=== PATIENT | male | born 1960 | race Caucasian/White ===

== ENCOUNTER 2016-11-17 19:07 | Emergency (ER) | payer BC, OTHER ==
[2016-11-17] MEDS ORDERED: Tetracaine HCl/PF 0.5% 4 ML Bottle EYERT ONE (19:17)
[2016-11-17] MEDS ORDERED: Polyvinyl Alcohol 1.4% Ophth Soln 15 ML Bottle EYEBOTH ONE (19:18)
[2016-11-17 19:19] VITALS: BP 142/78
[2016-11-17] MEDS ORDERED: Gentamicin 0.3% Ophth Soln 5 ML Bottle EYELF SCH (19:30)
--- NOTE | 2016-11-17 19:40 | EDM.PDOC ---
ED HPI GENERAL MEDICAL PROBLEM - General Chief Complaint: Eye Problems Stated Complaint: Something in L eye Time Seen by Provider: 11/17/16 19:15 Source of Information: Reports: Patient History Limitations: Reports: No Limitations - History of Present Illness INITIAL COMMENTS - FREE TEXT/NARRATIVE: Patient is a 56-year-old gentleman who was seen in the emergency room with chief complaint of left eye pain he thinks he has a foreign body in the eye pain started around 3 AM patient went to sleep and when he woke up in the morning he had increased pain he denies knowing anything that could cause his eye irritation Onset: Today, Sudden Duration: Hour(s):, Getting Worse Location: Reports: Face (Left eye) Quality: Reports: Ache, Stabbing Severity: Severe Improves with: Reports: None Worsens with: Reports: Other (Attempts at removal with) Context: Reports: Trauma Associated Symptoms: Reports: No Other Symptoms Treatments [employer]: Reports: Acetaminophen - Related Data Allergies Allergy/AdvReac Type Severity Reaction Status Date / Time No Known Allergies Allergy Verified 11/17/16 19:09 ED ROS GENERAL - Review of Systems Review Of Systems: See Below Constitutional: Reports: No Symptoms HEENT: Reports: No Symptoms Respiratory: Reports: No Symptoms Cardiovascular: Reports: No Symptoms Endocrine: Reports: No Symptoms GI/Abdominal: Reports: No Symptoms : Reports: No Symptoms Musculoskeletal: Reports: No Symptoms Skin: Reports: No Symptoms Neurological: Reports: No Symptoms Psychiatric: Reports: No Symptoms ED EXAM GENERAL W FULL EYE - Physical Exam Exam: See Below Exam Limited By: No Limitations General Appearance: Alert, WD/WN, No Apparent Distress Eye Exam: Left Eye: Corneal Abrasion (Small ulceration 6:00) Cornea Exam: Left: Corneal Ulcer Pupils: Normal Accommodation Pupillary Size: Left: 3 mm Pupillary Reaction: Bilateral: Brisk Anterior Chamber: Bilateral: Normal Appearance Posterior Chamber: Bilateral: Normal Funduscopic Ears: Normal External Exam, Normal Canal, Hearing Grossly Normal, Normal TMs Nose: Normal Inspection, Normal Mucosa, No Blood Throat/Mouth: Normal Inspection, Normal Lips, Normal Teeth, Normal Gums, Normal Oropharynx, Normal Voice, No Airway Compromise Head: Atraumatic, Normocephalic Neck: Normal Inspection, Supple, Non-Tender, Full Range of Motion Respiratory/Chest: No Respiratory Distress, Lungs Clear, Normal Breath Sounds, No Accessory Muscle Use, Chest Non-Tender Cardiovascular: Normal Peripheral Pulses, Regular Rate, Rhythm, No Edema, No Gallop, No JVD, No Murmur, No Rub GI/Abdominal: Normal Bowel Sounds, Soft, Non-Tender, No Organomegaly, No Distention, No Abnormal Bruit, No Mass (Male) Exam: Deferred Rectal (Males) Exam: Deferred Back Exam: Normal Inspection, Full Range of Motion, NT Extremities: Normal Inspection, Normal Range of Motion, Non-Tender, Normal Capillary Refill, No Pedal Edema Neurological: Alert, Oriented, CN II-XII Intact, Normal Cognition, Normal Gait, Normal Reflexes, No Motor/Sensory Deficits Psychiatric: Normal Affect, Normal Mood Skin Exam: Warm, Dry, Intact, Normal Color, No Rash Lymphatic: No Adenopathy Course - Vital Signs Last Recorded V/S: Last Vital Signs Temp 99 F 11/17/16 19:18 Pulse 68 11/17/16 19:18 Resp 16 11/17/16 19:18 BP 142/78 H 11/17/16 19:18 Pulse Ox 99 11/17/16 19:18 - Orders/Labs/Meds Orders: Active Orders 24 hr Category Date Time Status Gentamicin [Gentak 0.3% Ophth Oint] Med 11/17/16 19:45 Ordered 1 gm EYERT TID Medication Orders Gentamicin Sulfate (Gentak 0.3% Ophth Oint) 1 gm EYERT TID [facility] Meds: Medications Generic Name Dose Route Start Last Admin Trade Name Freq PRN Reason Stop Dose Admin Gentamicin Sulfate 1 gm 11/17/16 19:45 Gentak 0.3% Ophth Oint EYERT TID [facility] Discontinued Medications Generic Name Dose Route Start Last Admin Trade Name Freq PRN Reason Stop Dose Admin Artificial Tears 10 ml 11/17/16 19:18 Liquitears 1.4% Ophth Soln EYEBOTH 11/17/16 19:19 ONETIME ONE Gentamicin Sulfate 0.5 ml 11/17/16 19:30 Garamycin 0.3% Ophth Soln EYELF TID JENNIFER Gentamicin Sulfate 1 gm 11/17/16 19:29 Gentamicin 0.1% TOP 11/17/16 19:30 ONETIME ONE Tetracaine HCl 1 ml 11/17/16 19:17 11/17/16 19:20 Tetracaine 0.5% Steri-Unit Lindsay EYERT 11/17/16 19:18 2 drop ASDIRECTED ONE Administration Departure - Departure Time of Disposition: 19:42 Disposition: Home, Self-Care 01 Condition: Good Clinical Impression: Corneal ulcer Qualifiers: Laterality: left Qualified Code(s): H16.002 - Unspecified corneal ulcer, left eye - Discharge Information Referrals: Marlena Cortes PA-C [Primary Care Provider] - Care Plan Goals: Patient will be sent home he is to apply Bicitra seen ointment half an inch every 4-6 hours while awake with a patch for 24 hours ibuprofen 3 tablets for pain - My Orders Last 24 Hours: My Active Orders 11/17/16 19:45 Gentamicin [Gentak 0.3% Ophth Oint] 1 gm EYERT TID - Assessment/Plan Last 24 Hours: My Active Orders 11/17/16 19:45 Gentamicin [Gentak 0.3% Ophth Oint] 1 gm EYERT TID
[2016-11-17] MEDS ORDERED: Bacitracin/Polymyxin B Ophth Oint 3.5 GM Tube EYELF SCH (19:46)
== END 2016-11-17 19:55 | disposition home or self-care (01) ==
LOC: LL.ED 19:07
DX: H16.002 Unspecified corneal ulcer, left eye (principal)
CPT/HCPCS: 99283; A9270

== ENCOUNTER 2023-02-06 13:28 | Emergency (ER) | payer OTHER ==
[2023-02-06] MEDS ORDERED: fentaNYL 50 MCG/ML SDV IVPUSH ONE ×2 (14:37→15:38)
[2023-02-06] MEDS ORDERED: Naloxone 0.4 MG/ML SDV IVPUSH PRN (14:37)
[2023-02-06 14:59] LABS: BASOPHILS ABSOLUTE AUTO 0.02 K/uL (0.00-0.20); BASOPHILS PERCENT AUTO 0.3 % (0.0-2.0); EOSINOPHILS ABSOLUTE AUTO 0.49 K/uL (0.00-0.50); HEMATOCRIT 34.6 % (39.0-49.0); LYMPHOCYTES ABSOLUTE AUTO 0.37 K/uL (0.50-3.50); MEAN CORPUSCULAR HEMOGLOBIN 31.8 pg (28.2-33.3); MEAN CORPUSCULAR HGB CONC 34.7 g/dL (31.7-36.0); MEAN CORPUSCULAR VOLUME 91.8 fL (84.0-98.0); MONOCYTES ABSOLUTE AUTO 0.41 K/uL (0.00-1.00); MONOCYTES PERCENT AUTO 6.7 % (2.0-14.0); NEUTROPHILS ABSOLUTE AUTO 4.87 K/uL (1.40-7.00); PLATELET COUNT,PLT 158 K/uL (150-350); RED BLOOD CELL COUNT 3.77 M/uL (4.33-5.41); WHITE BLOOD CELL COUNT,WBC 6.2 K/uL (4.0-10.2)
[2023-02-06] MEDS: Sodium Chloride 0.9% 10 ML Syringe FLUSH PRN ×3 (15:00→16:22)
[2023-02-06 15:26] LABS: ALANINE AMINOTRANSFERASE,ALT 29 U/L (12-78); ALBUMIN 3.4 g/dL (3.4-5.0); ALKALINE PHOSPHATASE 96 IU/L (46-116); ANION GAP 8.9 meq/L (7-15); ASPARTATE AMNIOTRANSFERASE,AST 16 U/L (15-37); BILIRUBIN TOTAL 0.7 mg/dL (0.2-1.0); BLOOD UREA NITROGEN,BUN 20 mg/dL (7-18); CALCIUM 8.8 mg/dL (8.5-10.1); CARBON DIOXIDE,CO2 28.1 mmol/L (21.0-32.0); CHLORIDE,CL 102 mmol/L (98-107); CREATININE 1.31 mg/dL (0.51-1.17); ESTIMATED GFR 62 mL/min (>=60); GLUCOSE RANDOM 100 mg/dL (70-99); PRO B-TYPE NATRIUR PEPT,BNPPRO 133 pg/mL (0-125); PROTEIN TOTAL,TP 6.3 g/dL (6.4-8.2); SODIUM,NA 139 mmol/L (136-145)
[2023-02-06 15:34] LABS: PROTHROMBIN TIME 9.9 SEC (9.0-11.1)
[2023-02-06 15:37] LABS: CORONAVIRUS COVID-19 NAA NEGATIVE (NEGATIVE)
[2023-02-06 15:38] LABS: INFLUENZA A NAA NEGATIVE (NEGATIVE); INFLUENZA B NAA NEGATIVE (NEGATIVE); RESPIRATORY SYNCYTIAL VIR NAA NEGATIVE (NEGATIVE)
[2023-02-06] MEDS ORDERED: Orphenadrine 60 MG/2 ML Inj IV ONE (15:38)
[2023-02-06] MEDS ORDERED: Menthol 10%/Methyl Salicylate 15% 85 GM Tube TOP SCH (16:00)
[2023-02-06 16:25] VITALS: BP 147/100; PULSE 71
[2023-02-06] MEDS ORDERED: HYDROmorphone 0.5 MG/0.5 ML Syringe IVPUSH ONE (16:53)
== END 2023-02-06 17:14 ==
LOC: LL.ED 13:28
DX: S72.001A Fracture of unspecified part of neck of right femur, initial encounter for closed fracture (principal); I10 Essential (primary) hypertension; Z20.822 Contact with and (suspected) exposure to COVID-19; Z79.899 Other long term (current) drug therapy; W01.0XXA Fall on same level from slipping, tripping and stumbling without subsequent striking against object, initial encounter
CPT/HCPCS: 0241U; 36415; 72100; 80053; 83880; 85025; 85610; 96374; 96375; 96376; 99284; 99284-25; A9270-GY; J1170; J2360; J3010; J3490